=== PATIENT | female | born 1995 | race Caucasian/White ===

== ENCOUNTER 2016-11-20 16:19 | Emergency (ER) | payer OTHER ==
[2016-11-20 16:29] VITALS: TEMP 98.1
--- NOTE | 2016-11-20 16:55 | EDPHY ---
H & P Stated Complaint: RLQ pain x 4 days. Progressively getting worse. Time Seen by Provider: 11/20/16 16:30 HPI/ROS: CHIEF COMPLAINT: Right-sided abdominal pain HISTORY OF PRESENT ILLNESS: The patient presents to the ED with 4 days of right -sided abdominal pain. She reports mild nausea no vomiting. She denies diarrhea. She denies prior history of the symptoms. The patient denies associated dysuria. She has no history of abdominal surgery. The patient does have a history of thyroid cancer status post thyroidectomy approximately 6 months ago. The patient denies any new medications. She denies melena. She denies any infectious symptoms. REVIEW OF SYSTEMS: A comprehensive 10 point review of systems is otherwise negative aside from elements mentioned in the history of present illness. Source: Patient Exam Limitations: No limitations - Personal History LMP (Females 10-55): 1-7 Days Ago Current Tetanus/Diphtheria Vaccine: Yes Current Tetanus Diphtheria and Acellular Pertussis (TDAP): Yes - Medical/Surgical History Hx Asthma: No Hx Chronic Respiratory Disease: No Hx Diabetes: No Hx Cardiac Disease: No Hx Renal Disease: No Hx Cirrhosis: No Hx Alcoholism: No Hx HIV/AIDS: No Hx Splenectomy or Spleen Trauma: No Other PMH: Thyroidectomy - Social History Smoking Status: Never smoked - Physical Exam Exam: General Appearance: Alert, no distress Eyes: Pupils equal and round no pallor or injection ENT, Mouth: Mucous membranes moist Respiratory: There are no retractions, lungs are clear to auscultation Cardiovascular: Regular rate and rhythm Gastrointestinal: Tenderness to palpation right upper quadrant, no peritoneal signs, no lower abdominal tenderness Neurological: A&O, normal motor function, normal sensory exam, normal cranial nerves Skin: Warm and dry, no rashes Musculoskeletal: Neck is supple nontender Extremities: symmetrical, full range of motion Constitutional: Initial Vital Signs Temperature (C) 36.7 C 11/20/16 16:24 Heart Rate 58 L 11/20/16 16:24 Respiratory Rate 14 11/20/16 16:24 Blood Pressure 120/91 H 11/20/16 16:24 O2 Sat (%) 99 11/20/16 16:24 O2 Delivery Mode Room Air Allergies/Adverse Reactions: No Known Allergies Allergy (Unverified 11/20/16 16:23) Home Medications: Medication Instructions Recorded Cytomel 25 mcg (*) 01/01/17 Prozac 10 MG (*) 11/20/16 Medical Decision Making - Diagnostics Imagin. Right upper quadrant ultrasound: Negative for evidence of cholelithiasis, cholecystitis or other acute abnormalities. 2. CT Scan of the Abdomen and Pelvis (With Contrast) 1920 hours History: Right lower quadrant pain, thyroid cancer. Technique: Axial computed tomographic images of the abdomen and pelvis were obtained with the uneventful intravenous administration of 85 mL Isovue-300 contrast. No oral or rectal contrast which limits the study. Dose reduction techniques were utilized. CT Abdomen Findings: Lung bases: Normal. Liver: Normal. Biliary system: No obstruction. Spleen: Normal. Pancreas: Normal. Adrenals: Normal. Kidneys: No obstruction or solid masses. Abdominal Aorta: No aneurysm. No bowel obstruction, ascites, or significant retroperitoneal lymphadenopathy. CT Pelvis Findings: Appendix appears normal without inflammatory changes. The right ovary demonstrates a cystic lesion measuring 3.9 x 3.2 cm. A small amount of free fluid the pelvis. No destructive osseous lesions. IUD in the uterus. Impression: 1. Right ovarian 3.9 x 3.2 cm cystic lesion. Recommend ultrasound pelvis. 2. No CT evidence of appendicitis, abscess or bowel obstruction. 3. Ultrasound Pelvis Complete (Transabdominal and Endovaginal) Including Duplex /Doppler Imaging History: Right-sided pelvic pain. Complex cyst on CT. Comparison: CT abdomen and pelvis November 20, 2016 Technique: Transabdominal and endovaginal ultrasound images were obtained. Endovaginal images obtained for better evaluation of the uterine myometrium and adnexa. Duplex/ Doppler imaging of adnexa. Findings: Uterus measures 7 x 3 x 5 cm. Endometrial thickness is 2 mm. IUD appears in good position centrally No definite uterine leiomyomata. Right ovary measures 4.9 x 4 x 3.4 cm. Left ovary measures 3 x 2.5 x 1.8 cm. Right ovarian complex cystic lesion measuring 3.4 x 3.2 x 2.9 cm. Minimal physiologic free fluid in the pelvis. Color Doppler flow to both ovaries without torsion. Impression: 1. No ovarian torsion. 2. Complex cyst right ovary 3.4 x 3.2 x 2.9 cm probably representing hemorrhagic cyst. Recommend followup ultrasound in 8 to 12 weeks to ensure resolution. 3. Minimal free fluid in the pelvis. 4. IUD in good position. ED Course/Re-evaluation: The patient presents to the ED with 3 days of abdominal pain. The patient did have some tenderness to palpation in her right upper quadrant. Gallbladder ultrasound is negative. I reassessed the patient and she is continuing to have right mid quadrant pain. Given her symptoms, a CT scan of the abdomen pelvis was ordered. The study demonstrated a complex right ovarian cyst had a follow-up pelvic ultrasound was obtained which demonstrates no evidence of torsion. The patient did receive IV fluids as well as IV Toradol in the emergency department. She presents to the ED with acute abdominal pain secondary to an ovarian cyst which is not torsed. She will be discharged home with customary return precautions. She should follow up with gynecology for a repeat ultrasound in 6 weeks. The patient did have multiple examinations by myself in the ED over a 4 hour period. I explained her the results of her testing, red flag warning signs and return precautions. Differential Diagnosis: Differential diagnosis considered includes cholecystitis, cholelithiasis, pyelonephritis, nephrolithiasis, appendicitis, ovarian cyst, ovarian torsion - Data Points Laboratory Results: Laboratory Results 11/20/16 16:40 11/20/16 16:40 11/20/16 11/20/16 18:25 16:40 WBC 6.69 10^3/uL (3.80-9.50) RBC 5.21 10^6/uL (4.18-5.33) Hgb 15.0 g/dL (12.6-16.3) Hct 43.1 % (38.0-47.0) MCV 82.7 fL (81.5-99.8) MCH 28.8 pg (27.9-34.1) MCHC 34.8 g/dL (32.4-36.7) RDW 13.5 % (11.5-15.2) Plt Count 158 10^3/uL (150-400) MPV 8.5 L fL (8.7-11.7) Neut % (Auto) 33.7 L % (39.3-74.2) Lymph % (Auto) 53.5 H % (15.0-45.0) [place] % (Auto) 7.9 % (4.5-13.0) Eos % (Auto) 3.3 % (0.6-7.6) Baso % (Auto) 1.0 % (0.3-1.7) Nucleat RBC Rel Count 0.0 % (0.0-0.2) Absolute Neuts (auto) 2.25 10^3/uL (1.70-6.50) Absolute Lymphs (auto) 3.58 H 10^3/uL (1.00-3.00) Absolute Monos (auto) 0.53 10^3/uL (0.30-0.80) Absolute Eos (auto) 0.22 10^3/uL (0.03-0.40) Absolute Basos (auto) 0.07 10^3/uL (0.02-0.10) Absolute Nucleated RBC 0.00 10^3/uL (0-0.01) Immature Gran % 0.6 % (0.0-1.1) Immature Gran # 0.04 10^3/uL (0.00-0.10) Sodium 141 mEq/L (134-144) Potassium 3.9 mEq/L (3.5-5.2) Chloride 104 mEq/L (97-110) Carbon Dioxide 23 mEq/l (22-31) Anion Gap 14 mEq/L (8-16) BUN 10 mg/dL (7-23) Creatinine 0.7 mg/dL (0.6-1.0) Estimated GFR > 60 Glucose 83 mg/dL (70-100) Calcium 9.3 mg/dL (8.5-10.4) Total Bilirubin 0.7 mg/dL (0.1-1.4) Conjugated Bilirubin 0.2 mg/dL (0.0-0.5) Unconjugated Bilirubin 0.5 mg/dL (0.0-1.1) AST 25 IU/L (14-46) ALT 34 IU/L (9-52) Alkaline Phosphatase 104 IU/L (38-126) Total Protein 7.7 g/dL (6.3-8.2) Albumin 4.6 g/dL (3.5-5.0) Lipase 117.0 IU/L (23-300) Beta HCG, Qual NEGATIVE Urine Color PALE YELLOW Urine Appearance CLEAR Urine pH 6.0 (5.0-7.5) Ur Specific [place] 1.008 (1.002-1.030) Urine Protein NEGATIVE (NEGATIVE) Urine Ketones 1+ H (NEGATIVE) Urine Blood NEGATIVE (NEGATIVE) Urine Nitrate NEGATIVE (NEGATIVE) Urine Bilirubin NEGATIVE (NEGATIVE) Urine Urobilinogen NEGATIVE EU (0.2-1.0) Ur Leukocyte Esterase NEGATIVE (NEGATIVE) Ur Culture Indicated? NOT INDICATED (NI) Urine Glucose NEGATIVE (NEGATIVE) Medications Given: Discontinued Medications Sodium Chloride (Ns) 1,000 mls @ 0 mls/hr IV ONCE ONE PRN Reason: Wide Open Stop: 11/20/16 17:11 Last Admin: 11/20/16 17:10 Dose: 1,000 mls Departure - Departure Disposition: Home, Routine, Self-Care Clinical Impression: Ovarian cyst, right Condition: Good Instructions: Ovarian Cyst (ED) Additional Instructions: 1. Take Ibuprofen or Motrin 600 mg by mouth three times a day. 2. Please schedule a follow-up appointment with gynecology for a repeat ultrasound in 6 weeks. 3. Please return to the ED for severe pain, worsening symptoms or other concerns. 4. You have been given the contact number of our on-call electrical power engineer if you do not have a relationship with a local electrical power engineer who can see you in follow- up. Referrals: Darcy Alba DO [Doctor of Osteopathy] - As per Instructions
[2016-11-20 16:56] LABS: % IMMATURE GRANULYOCYTES 0.6 % (0.0-1.1); ABSOLUTE IMMATURE GRANULOCYTES 0.04 10^3/uL (0.00-0.10); ADD DIFF? NO; ADD MORPH? NO; ADD SCAN? NO; ATYPICAL LYMPHOCYTE FLAG 30 (0-99); FRAGMENT RBC FLAG 0 (0-99); HEMATOCRIT 43.1 % (38.0-47.0); LEFT SHIFT FLG 0 (0-99); LIPEMIA HEMOLYSIS FLAG 90 (0-99); MEAN CELL HEMOGLOBIN 28.8 pg (27.9-34.1); MEAN CELL HEMOGLOBIN CONCENTR. 34.8 g/dL (32.4-36.7); MEAN CELL VOLUME 82.7 fL (81.5-99.8); MEAN PLATELET VOLUME 8.5 fL (8.7-11.7); PLATELET CLUMPS FLAG 10 (0-99); PLATELET COUNT 158 10^3/uL (150-400); RED BLOOD CELL COUNT 5.21 10^6/uL (4.18-5.33); RED CELL DISTRIBUTION WIDTH 13.5 % (11.5-15.2)
[2016-11-20 17:06] LABS: ALANINE AMINOTRANSFERASE 34 IU/L (9-52); ALBUMIN 4.6 g/dL (3.5-5.0); ALKALINE PHOSPHATASE 104 IU/L (38-126); ANION GAP 14 mEq/L (8-16); ASPARTATE AMINOTRANSFERASE 25 IU/L (14-46); BILIRUBIN,TOTAL 0.7 mg/dL (0.1-1.4); BILIRUBIN-CONJUGATED 0.2 mg/dL (0.0-0.5); BILIRUBIN-UNCONJUGATED 0.5 mg/dL (0.0-1.1); CALCIUM 9.3 mg/dL (8.5-10.4); CARBON DIOXIDE 23 mEq/l (22-31); CHLORIDE 104 mEq/L (97-110); CREATININE 0.7 mg/dL (0.6-1.0); GLOMERULAR FILTRATION RATE > 60; GLUCOSE 83 mg/dL (70-100); POTASSIUM 3.9 mEq/L (3.5-5.2); SODIUM 141 mEq/L (134-144); TOTAL PROTEIN 7.7 g/dL (6.3-8.2)
[2016-11-20] MEDS ORDERED: NS 1,000 ML IV ONE (17:10)
[2016-11-20 18:35] LABS: COLOR PALE YELLOW; LEUKOCYTE ESTERASE,URINE NEGATIVE (NEGATIVE); NITRITE,URINE NEGATIVE (NEGATIVE)
[2016-11-20] MEDS ORDERED: IOPAMIDOL (ISOVUE-300) 100 ML BTL IV ONE (19:10)
--- NOTE | 2016-11-20 19:42 | CT ---
CT Scan of the Abdomen and Pelvis (With Contrast) 1920 hours History: Right lower quadrant pain, thyroid cancer. Technique: Axial computed tomographic images of the abdomen and pelvis were obtained with the unevent ful intravenous administration of 85 mL Isovue-300 contrast. No oral or rectal contrast which limits the study. Dose reduction techniques were utilized. CT Abdomen Findings: Lung bases: Normal. Liver: Normal. Biliary system: No obstruction. Spleen: Normal. Pancreas: Normal. Adrenals: Normal. Kidneys: No obstruction or solid masses. Abdominal Aorta: No aneurysm. No bowel obstruction, ascites, or significant retroperitoneal lymphadenopathy. CT Pelvis Findings: Appendix appears normal without inflammatory changes. The right ovary demonstrate s a cystic lesion measuring 3.9 x 3.2 cm. A small amount of free fluid the pelvis. No destructive oss eous lesions. IUD in the uterus. Impression: 1. Right ovarian 3.9 x 3.2 cm cystic lesion. Recommend ultrasound pelvis. 2. No CT evidence of appendicitis, abscess or bowel obstruction. Findings and recommendations discussed with Emergency Department physician, Dr. Krzysztof Pena at 193 0 hour, today. Final report concurs with initial preliminary interpretation.
--- NOTE | 2016-11-20 19:45 | US ---
Ultrasound of the Abdomen Limited History: Right upper quadrant Abdominal pain. Findings: Gallbladder: No shadowing calculi, wall thickening, or pericholecystic fluid. Common bile duct is 2 m m in diameter which is normal. Liver: Homogeneous in echogenicity without definite focal lesions and measures 17 cm in length. Renal: Right kidney measures 11 x 4 x 5 cm without hydronephrosis. Pancreas: Homogeneous without peripancreatic fluid. Aorta: Visualized upper abdominal aorta demonstrates no aneurysm. Impression: No cholelithiasis or biliary ductal dilation. Findings and recommendations discussed with Emergency Department physician, Dr. Vazquez at 1755 hour, today. Final report concurs with initial preliminary interpretation.
[2016-11-20] MEDS ORDERED: KETOROLAC 30 MG/1 ML SDV IVP ONE (20:23)
--- NOTE | 2016-11-20 20:27 | US ---
Ultrasound Pelvis Complete (Transabdominal and Endovaginal) Including Duplex/Doppler Imaging History: Right-sided pelvic pain. Complex cyst on CT. Comparison: CT abdomen and pelvis November 20, 2016 Technique: Transabdominal and endovaginal ultrasound images were obtained. Endovaginal images obtain ed for better evaluation of the uterine myometrium and adnexa. Duplex/Doppler imaging of adnexa. Findings: Uterus measures 7 x 3 x 5 cm. Endometrial thickness is 2 mm. IUD appears in good position centrally No definite uterine leiomyomata. Right ovary measures 4.9 x 4 x 3.4 cm. Left ovary measures 3 x 2.5 x 1.8 cm. Right ovarian complex cy stic lesion measuring 3.4 x 3.2 x 2.9 cm. Minimal physiologic free fluid in the pelvis. Color Doppler flow to both ovaries without torsion. Impression: 1. No ovarian torsion. 2. Complex cyst right ovary 3.4 x 3.2 x 2.9 cm probably representing hemorrhagic cyst. Recommend foll owup ultrasound in 8 to 12 weeks to ensure resolution. 3. Minimal free fluid in the pelvis. 4. IUD in good position. Findings and recommendations discussed with Emergency Department physician, Dr. Krzysztof Pena at 202 5 hour, today. Final report concurs with initial preliminary interpretation.
[2016-11-20 21:07] VITALS: BP 123/82; PULSE 93; RESP 16; O2SAT 94
== END 2016-11-20 21:06 | disposition home or self-care (01) ==
DX: N83.201 Unspecified ovarian cyst, right side (principal)
CPT/HCPCS: 96374; J1885; Q9967